=== PATIENT | male | born 1965 | race Caucasian/White ===

== ENCOUNTER 2021-09-14 08:00 | Outpatient (RCR) | payer OTHER, SELFPAY ==
--- NOTE | 2021-08-10 09:13 | PTOPEVAL ---
Thank you for referring Raghavendra Stoddard to [facility] The patient is scheduled to be seen for therapy? 1 x/week for 5 weeks. Please review, sign, date and return this plan of care JAMIL. I agree with and certify that the following plan of care is medically necessary. Referring Physician Date Attending Provider: Tori Ventimiglia Diagnosis numbness and tingling into cristo UE Onset 1 month ago Additional Evaluation Detail He has been working a new job 4 months ago with increased lifting. Subjective Information He reports increased arm Query Text:As Reported By Patient/ soreness after work and Family increased lifting. But he reports increased numbness of left UE with difficulty with grasp. Increased symptoms in the morning and into full UE/hand region. States left > right for symptoms. He will have increased hand symptoms with use of phone or computer, but improve with rest. Reports he fatigues faster with daily task. He was working IT prior to current job, but did not have the UE symptoms. Diagnostic Tests X-Rays For This Problem Yes: mild/mod degenerative changes of neck region Pain Assessment Right Arm(s) Reported Pain Level 1 Pain Description Numbness,Radiating,Soreness, Tingling Pain Radiation Right Arm Lowest Pain Intensity 1 Greatest Pain Intensity 7 Pain Aggravating Factors Exercise/Activity Left Arm(s) Reported Pain Level 3 Pain Description Numbness,Radiating,Tingling Pain Radiation Left Arm Pain Frequency Continuous Lowest Pain Intensity 3 Greatest Pain Intensity 10 Pain Aggravating Factors Exercise/Activity,Lifting Cervical and Lumbar ROM Cervical ROM Cervical Flexion (0-60) 70:Active in Degrees Cervical Extension (0-70) 60:Active in Degrees Cervical Lateral Flexion Right (0-50) 30:Active in Degrees Cervical Lateral Flexion Left (0-50) 35Active in Degrees Cervical Rotation Right (0-90) 68:Active in Degrees Cervical ROM Comments no pain with neck motions Upper Extremity Range of Motion General Upper Extremity Range of Motion Reason Not Measured
--- NOTE | 2021-09-14 08:51 | PTOPEVAL ---
Physical Therapy Discharge Summary Thank you for referring Raghavendra Stoddard to [facility]. HE was referred to therapy due to new onset of numbness and tingling of UE. He has attended 6 therapy visits from 08/10/21 to 09/14/21. As result of skilled therapy services he reports improve cristo UE symptoms at rest and with UE activities. He demonstrates slight increased cervical lateral flex without increased symptoms. Improved scapular stability strength noted,but remains below normal consistent with poor posture and scapular positions. No tissue restrictions of neck region. Neck questionnaire: 8% impaired at eval and 6% impaired at update Quick Dash: 16% impaired at eval and 11% impaired at update Assessment: As a result of skilled therapy services Raghavendra has partially achieved his therapy goals. He demonstrates improved UE symptoms and improved strength. His neck motion is pain free and WNL. He has been provided a HEP,but is not consistent with performing. Recommend DC from skilled therapy services at this time with recommendation to cont with HEP and focus on posture with activities. DC skilled PT services. Please review, sign, date and return this discharge summary JAMIL. I agree with and certify that the following plan of care is medically necessary. Referring Physician Date Attending Provider: Tori Ventimiglia Diagnosis numbness and tingling into cristo UE Onset 1 month ago Additional Evaluation Detail He has been working a new job 4 months ago with increased lifting. Subjective Information He recently retired and hopes Query Text:As Reported By Patient/ to have more time for his HEP. Family HE is peforming HEP 2-3x/wk. He reports improved UE symptoms with lifting. He has less arm pain in the morning. Reports improved numbness and tingling into his UE. He will have increased hand symptoms greatest in the morning, but also with lifting task. Symptoms into arms go to elbow region. He will wear an elbow brace as need which improves his pain. Pain Assessment Right Arm(s) Reported Pain Level 0 Pain Description Tightness Pain Frequency Continuous Lowest Pain Intensity 0 Greatest Pain Intensity 2 Pain Aggravating Factors Exercise/Activity,Lifting Left Arm(s) Reported Pain Level 1 Pain Description Numbness,Radiating,Tightness, Tingling Lowest Pain Intensity 1 Greatest Pain Intensity 5 Pain Aggravating Factors Exercise/Activity,Lifting Cervical and Lumbar ROM Cervical ROM Cervical Flexion (0-60) 65 Degrees
== END 2021-09-15 10:40 | disposition home or self-care (01) ==
LOC: ANHPT 08:00
DX: R20.0 Anesthesia of skin (principal); R20.2 Paresthesia of skin
CPT/HCPCS: 97110; 97112; 97140; 97161; 97530

== ENCOUNTER 2024-08-18 14:38 | Emergency (ER) | payer SELFPAY ==
--- NOTE | ~2024-08-18 | XR_ITS ---
XR hand RT min 3V Ordering provider: Maxwell Lou MD History: . hand vs table saw . Comparison: None. FINDINGS: BONES: Oblique midshaft fracture of the proximal phalanx of the second finger with minimal displaceme nt.. Overlapping cast is noted. JOINT SPACES: Normal. SOFT TISSUES: Normal. IMPRESSION: Oblique fracture in the proximal phalanx of the right second finger. Reviewed, dictated and finalized at location A.
--- OUTSIDE RECORDS SUMMARY | 2024-08-18 14:42 | XMS_ITS | Clinical Summary ---
Author Organization CC [facility] 1 [address] Address [address] [place] [address] Phone Care Team Providers Care Presentation Team Member Name Role Phone Kellie Bruno MD Primary Care Provider [phone] Olman Groves OD Unavailable [phone] Kahlil Orr MD Unavailable [phone] Puma Jon MD Unavailable [phone] Sekou Schaefer MD Unavailable Leonardo Henry MD Unavailable Arthur Zavala DPM Unavailable [phone] Allergies No known active allergies Medications FLUoxetine (PROzac) 20 mg capsule daily 09/30/19 17 Active multivit with min-folic acid 200 mcg tablet,chewableInd ications:stop 5 days before surgery Take by mouth Take 1 daily Active aspirin 81 mg chewable tabletIndications: Angina pectoris Take 1 tablet (81 mg total) by mouth daily 30 tablet 1 07/15/19 22 Active rosuvastatin (CRESTOR) 20 mg tabletIndications: Multiple-type hyperlipidemia Take 1 tablet by mouth once daily 90 tablet 1 07/25/19 25 Active rosuvastatin (CRESTOR) 20 mg tabletIndications: Multiple-type hyperlipidemia Take 1 tablet (20 mg total) by mouth daily 90 tablet 3 02/08/20 23 025 Discontinued Active Problems Problem Noted Date Diagnosed Date Right inguinal hernia 02/07/2023 Overview (02/07/2023): Previous left inguinal hernia successfully treated with surgery. Early right inguinal hernia noted February 2023 PETEY (obstructive sleep apnea) 08/26/2021 Family history of heart disease 08/26/2021 Bipolar I disorder, most recent episode depresse d 09/22/2013 Overview (08/11/2016): Bipolar depression Multiple-type hyperlipidemia 09/22/2013 Overview (08/12/2016): Combined hyperlipidemia Resolved Problems Problem Noted Date Diagnosed Date Resolved Date Dizziness 08/26/2021 02/01/2022 Numbness and tingling of right arm 07/27/2021 02/01/2022 Numbness and tingling in left arm 07/27/2021 02/01/2022 Hypersomnia 07/27/2021 02/07/2023 Laceration of left eyelid wi thout complication 02/02/2021 07/14/2021 Assessment & Plan (02/02/2021 9:19 AM CDT): Patient presents today for suture removal. Laceration is healed well, wound edges are well approximated and no obvious sign of infection. Area cleaned and 5 sutures removed. Patient tolerated well. Patient encouraged to keep area clean with gentle soap and water. He is to call with any redness, warmth, swelling, pain or discharge. Patient will return as scheduled or sooner if needed. Left inguinal hernia 06/27/2018 023 Overview (06/27/2018): Added automatically from request for surgery [id number] Assessment & Plan (06/27/2018 3:09 PM PASSPORT APPLICATION EXAMINER): The procedure of a hernia repair along with the risks and benefits and post operative period were discussed with the patient to which he agrees. The signs and symptoms of incarceration and obstruction were also discussed. The patient was also offered an appointment with the surgeon prior to scheduling surgery of which he declined. Chronic GERD 09/22/2013 06/10/2017 Overview (08/14/2016): GERD (gastroesophageal reflux disease) Vitamin D deficiency 09/22/2013 023 Overview (08/14/2016): Vitamin D deficiency Immunizations Immunization Administration Dates Next Due Flucelvax Influenza Quad 02/04/2019 Influenza, Quadrivalent, Ramona l Culture-based MDCK, Preservative Free, Antibiotic Free, Intramuscular 01/27/2022,02/07/2021,02/04/2019 Influenza, Quadrivalent, Spl it, Intramuscular 02/07/2016 Influenza, Quadrivalent, Spl it, Preservative Free, Intramuscular 01/15/2020,01/21/2018,01/20/2018,02/12 Influenza, Trivalent, IM (MDV) 5,01/27/2014,02/15/2013,04/15 Influenza, Trivalent, Preser vative Free, Intramuscular 02/13/2016,02/01/2015 Influenza, Unspecified 01/07/2017 Moderna Sars-cov-2 Bivalent Vaccine 50 Mcg/0.5 mL (12+ YRS)-Blue/Purdy 01/27/2022 Tdap 01/26/2021,06/08/2012 ZOSTER Recombinant 04/25/2018,02/24/2018 Surgical History Surgery Date Site/Laterality Comments COLONOSCOPY 05/09/2014 - 05/08/2015 (-) Dr. Jon due in 10 years HERNIA REPAIR 07/27/2018 Left Endoscopic Total ExtraPeriatoneal Left Inguinal Hernia Repair with Mesh Medical History Medical History Date Comments Eczema Bipolar 1 disorder (HCC) Hyperlipidemia GERD (gastroesophageal reflux disease) Diverticulosis Chronic GERD 09/22/2013 GERD (gastroesop hageal reflux disease) Depression 2019 Inguinal hernia PETEY (obstructive sleep apnea) 08/26/2021 Vitamin D deficiency 09/22/2013 Vitamin D d eficiency Hypersomnia 07/27/2021 Family History Medical History Relation Name Comments Heart attack Brother Heart disease Brother Heart disease Father Colon cancer Maternal Grandfather Cancer Mother's Brother Prostate cancer Mother's Brother Coronary artery disease Other 1 Coronary artery disease Other 2 Diabetes Other 3 Heart attack Other 4 Heart disease Paternal Grandmother Relation Name Status Comments Brother Alive Father Alive Maternal Grandfather Mother's Brother Alive Other 1 Other 2 Other 3 Other 4 Paternal Grandmother Social History Tobacco Use Types Packs/Day Years Used Date Smoking Tobacco: Never Smokeless Tobacco: Never Tobacco Cessation:Counseling Given: Not Answered Alcohol Use Standard Drinks/Week Comments Yes 2 (1 standard drink = 0.6 oz pur e alcohol) PHQ-2 Answer Date Recorded PHQ-2 Total Score (If total score is 3 or more points, staff should administer the PHQ-9) 0 02/09/2024 Sex and Gender Information Value Date Recorded Sex Assigned at Not on file Legal Sex Male 7:18 PM PASSPORT APPLICATION EXAMINER Gender Identity Not on file Sexual Orientation Not on file Obstetrics History Last Filed Vital Signs Vital Sign Reading Time Taken Comments Blood Pressure 117/73 02/16/2024 8:08 AM CDT Pulse 86 02/16/2024 8:08 AM CDT Temperature 36.5 C (97.7 F) 02/09/2024 10:44 AM CDT Respiratory Rate 16 02/09/2024 10:44 AM CDT Oxygen Saturation 95% 02/16/2024 8:08 AM CDT Inhaled Oxygen Concentration - - Weight 85.3 kg (188 lb) 02/16/2024 8:08 AM CDT Height 176.5 cm (5' 9.5 ) 02/16/2024 8:08 AM CDT Body Mass Index 27.36 02/16/2024 8:08 AM CDT Plan of Treatment Health Maintenance Due Date Last Done Comments Hepatitis B Screening 1981 Colon Cancer Screening-Colonoscopy 10/28/2024 10/28/2014, 10/28/2014 Influenza Vaccine (Season Ended) 2025 01/27/2022, 02/07/2021, 01/15/2020, Additional history exists Depression Screening 02/08/2025 02/09/2024, 02/07/2023, 02/01/2022, Additional history exists Regular Well Visit/Exam 18-64 02/08/2025 02/09/2024, 02/07/2023, 02/01/2022, Additional history exists Prostate Cancer Screening-PSA 02/08/2026 02/09/2024, 01/28/2023, 02/01/2022, Additional history exists DTaP/Tdap/Td Vaccine (3 - Td or Tdap) 01/26/2031 01/26/2021, 06/08/2012 Colon Cancer Screening-CT Colonography Discontinued 10/28/2014, 10/28/2014 Colon Cancer Screening-DNA Stool Discontinued 10/28/2014, 10/28/2014 Colon Cancer Screening-FIT Discontinued 10/28/2014, Colon Cancer Screening-Sigmoidoscopy Discontinued 10/28/2014, 10/28/2014 Hepatitis C Screening Completed 10/28/2015 Zoster Vaccine Completed 04/25/2018, 02/24/2018 Covid-19 Vaccine Completed 01/24/2024, 07/2022, 01/27/2022, Additional history exists Pneumococcal vaccine <65 Aged Out No longer eligible based on patient's age to complete this topic Medical Devices Implanted Type Area Collections Attorney Device Identifier Shelf Expiration Date Model / Serial / Lot Med[employer]onic Inc [id number] Progrip 15x9cm Self Manager Life Rectangle Mesh Surgical Polyester Hernia - [id number] Implanted:Qty: 1 on 07/27/2018 by Dmitry Pelaez MD at [facility] [employer] 02/05/2023 [id number] / / [id number] Procedures Procedure Name Priority Date/Time Associated Diagnosis Comments PSA SCREEN Routine 02/09/2024 12:08 PM CDT Prostate cancer screening HEPATITIS C ANTIBODY Routine 10/28/2015 9:08 AM CDT COLONOSCOPY IMAGES 10/28/2014 from Last 3 Months or Most Recently Relevant to Health Maintenance Results * PSA screen (02/09/2024 12:08 PM CDT) PSA-Total 1.73 <=5.40 ng/mL Comment: Interpretive Data AGE SEX REFERENCE INTERVAL 0 minutes-150 years Female None 0 minutes-49 years Male None 50-59 years Male 0-3.90 60-69 years Male 0-5.40 70-79 years Male 0-6.20 80-150 years Male 0-6.20 The Crystal PSA Total assay procedure was used. Results from different manufacturers or methods may not be comparable. Serial testing should be performed using the same method. Current interpretive data last revised 21. Testing performed by: [facility], [address] [place] [address]., [address] Blood 02/09/2024 12:0 8 PM CDT 02/09/2024 5:15 PM CDT Kellie Bruno MD LAB BLOOD ORDERABLES Final Result Performing Organization Address [facility] Co de Phone Number [facility] [address] [facility] Department of Laboratories [place] [id number] * Hepatitis C antibody (10/28/2015 9:08 AM CDT) SIGNAL TO CUT-OFF 0.01 <1.00 [facility] Comment: REPORT COMMENT: FASTING:YES [facility] [address] [place] [address] Director: JUDITH ALCARAZ DO,MPH Hep C Ab NON-REACT FABI NON-REACT FABI [facility]OR[facility] RESULTS 10/28/2015 9:08 AM CDT Kellie Bruno MD LAB MICROBIOLOGY - GENERAL ORDERABLES Final Result Performing Organization Address [facility] Co de Phone Number [facility] * COLONOSCOPY IMAGES (10/28/2014) Anatomical Region Laterality Modality Other Narrative 10/28/2014 Ordered by an unspecified provider. Historical Provider GI PROCEDURE ORDERABLES F inal Result from Last 3 Months or Most Recently Relevant to Health Maintenance Insurance [employer] [place] Advance Directives For more information, please contact: [phone] Documents on File Type Date Recorded Patient Bike Shop Manager Expl anation ADVANCE DIRECTIVE 02/09/2024 ADVANCE DIRECTIVE 12/26/2019 POWER OF A [employer] Care Teams Presentation Team Member Relationship Specialty Start Date End Date Kellie Bruno MD PCP - General 05/26/12 Olman Groves OD [address] [place] [address] Virtual Office Assistant 12/07/16 Kahlil Orr MD [address] [facility] [address] [place] [address] Psychiatry 12/07/16 uPma Jon MD [address] [place] [facility] [place] [address] Internal Medicine 12/07/16 Sekou Schaefer MD [address] [facility] [address] [place] [address] Consulting Physician Cardiology 07/14/21 Leonardo Henry MD [address] [facility] [address] [place] [address] Consulting Physician Neurology 02/01/22 Arthur Zavala DPM [address] [place] [address] Consulting Physician Orthotics 02/07/23
--- OUTSIDE RECORDS SUMMARY | 2024-08-18 14:42 | XMS_ITS | Clinical Summary ---
Author Organization [facility] Address [address] [place] [address] Care Team Providers Care Bindery Helper Name Role Phone Kellie Bruno MD Primary Care Provider [phone] Allergies No known active allergies Medications atorvastatin 20 MG tablet Take 20 mg by mouth nightly at bedtime. Active FLUoxetine 10 MG capsule Take 10 mg by mouth daily. Active Family History Medical History Relation Comments Heart Disease Father Relation Status Comments Father Social History Tobacco Use Types Packs/Day Years Used Date Smoking Tobacco: Never Smokeless Tobacco: Never Alcohol Use Standard Drinks/Week Comments Never 0 (1 standard drink = 0.6 oz pur e alcohol) Sex and Gender Information Value Date Recorded Sex Assigned at Not on file Legal Sex Male 7:10 PM CDT Gender Identity Not on file Sexual Orientation Not on file Last Filed Vital Signs Vital Sign Reading Time Taken Comments Blood Pressure 127/66 07/10/2021 10:15 PM SEM MANAGER Pulse 86 07/10/2021 6:59 PM SEM MANAGER Temperature 36.5 C (97.7 F) 07/10/2021 6:59 PM SEM MANAGER Respiratory Rate 16 07/10/2021 6:59 PM SEM MANAGER Oxygen Saturation 98% 07/10/2021 10:15 PM SEM MANAGER Inhaled Oxygen Concentration - - Weight 72.6 kg (160 lb) 07/10/2021 6:59 PM SEM MANAGER Height 175.3 cm (5' 9 ) 07/10/2021 6:59 PM SEM MANAGER Body Mass Index 23.63 07/10/2021 6:59 PM SEM MANAGER Plan of Treatment Health Maintenance Due Date Last Done Comments Colorectal Cancer Screening Colonoscopy (10 Years) 1963 Annual Physical 1966 Hepatitis C 1981 COVID-19 Vaccine (2 - 2023-2 5 season) 2024 07/13/2020 DTaP, Tdap and Td Vaccines ( 3 - Td or Tdap) 01/26/2031 01/26/2021, 06/08/2012 RSV Immunization or 60+ Years (1 - 1-dose 75+ series) 2038 Zoster Vaccines Completed 04/25/2018, 02/24/2018 Meningococcal B Vaccine Aged Out No l onger eligible based on patient's age to complete this topic Meningococcal Vaccine Aged Out No marcia claire eligible based on patient's age to complete this topic Pneumococcal Vaccine: Pediatrics (0 to 5 Years) and At-Risk Patients (6 to 64 Years) Aged Out No longer eligible b ased on patient's age to complete this topic RSV Immunizations Under 20 Months Aged Out No longer eligible b ased on patient's age to complete this topic Insurance AET [facility] Care Teams Bindery Helper Relationship Specialty Start Date End Date Kellie Bruno MD [address] [place] [address] PCP - General INTERNAL MEDICINE 01/25/21
--- OUTSIDE RECORDS SUMMARY | 2024-08-18 14:42 | XMS_ITS | Encounter Summary ---
Author Organization [facility] Address [facility] [place] [address] Care Team Providers Care Manager Trade Marketing Name Role Phone Kellie Bruno MD Primary Care Provider [phone] Encounter Details Date Type Department Care Team (Late st Contact Info) Description 09/23/2021 [employer] [place] Message [facility] Patient Accounts [address] [place] [address] [facility] Provider AutoPay Payment Plan Social History Tobacco Use Types Packs/Day Years Used Date Smoking Tobacco: Never Smokeless Tobacco: Never Alcohol Use Standard Drinks/Week Comments Never 0 (1 standard drink = 0.6 oz pur e alcohol) Sex and Gender Information Value Date Recorded Sex Assigned at Not on file Legal Sex Male 7:10 PM CDT Gender Identity Not on file Sexual Orientation Not on file documented as of this encounter Plan of Treatment Not on file documented as of this encounter Visit Diagnoses Not on filedocumented in this encounter Care Teams Manager Trade Marketing Relationship Specialty Start Date End Date Kellie Bruno MD [address] [place] [address] PCP - General INTERNAL MEDICINE 01/25/21 documented as of this encounter
--- OUTSIDE RECORDS SUMMARY | 2024-08-18 14:42 | XMS_ITS | Referral Summary ---
Author Organization [facility] 1 [employer] Address [address] [place] [address] Phone Care Team Providers Care Senior Mechanical Estimator Name Role Phone Kellie Bruno MD Primary Care Provider [phone] Olman Groves OD Unavailable [phone] Kahlil Orr MD Unavailable [phone] Puma Jon MD Unavailable [phone] Sekou Schaefer MD Unavailable Leonardo Henry MD Unavailable Arthur Zavala DPM Unavailable [phone] Allergies No known active allergies Medications FLUoxetine [...] Early right inguinal hernia noted February 2023 PETYE (obstructive sleep apnea) 08/26/2021 Family history of [...] (06/27/2018): Added automatically from request for surgery [id number] Assessment & Plan (06/27/2018 3:09 PM SHOT HOLE SHOOTER): The procedure of a hernia repair along [...] YRS)-Blue/Purdy 01/27/2022 Tdap 01/26/2021,06/08/2012 ZOSTER Recombinant 04/25/2018,02/24/2018 Social History Tobacco Use Types Packs/Day Years [...] on file Legal Sex Male 7:18 PM SHOT HOLE SHOOTER Gender Identity Not on file Sexual Orientation [...] 02/16/2024 8:08 AM CDT Plan of Treatment Not on file Medical Devices Implanted Type Area Shot Grinder Operator Device Identifier Shelf Expiration Date Model / Serial / Lot [employer] [id number] Progrip 15x9cm Self Ball Point Splitter Rectangle Mesh Surgical Polyester Hernia - [id number] Implanted:Qty: 1 on 07/27/2018 by Dmitry Pelaez MD at [facility] [employer] 02/05/2023 [id number] / / [id number] Procedures Procedure Name Priority Date/Time Associated Diagnosis [...] data last revised 21. Testing performed by: [facility], [address] [place] [address], [place]., [address] Blood 02/09/2024 12:0 8 PM CDT 02/09/2024 5:15 PM CDT Kellie Bruno MD LAB BLOOD ORDERABLES Final Result [facility] [place] [address] [address] Department [place] [address] * Hepatitis C antibody (10/28/2015 9:08 AM CDT) SIGNAL TO CUT-OFF 0.01 <1.00 [facility] Comment: REPORT COMMENT: FASTING:YES [facility] performed at [facility] [address] [place] [address] Director: JUDITH ALCARAZ DO,MPH Hep C Ab NON-REACT FABI NON-REACT FABI [facility]OR[facility] RESULTS 10/28/2015 9:08 AM CDT Kellie Bruno MD LAB MICROBIOLOGY - GENERAL ORDERABLES Final Result Performing Organization Address City/[facility] [address]/ZIP Co de Phone Number [facility] * COLONOSCOPY IMAGES (10/28/2014) Anatomical Region Laterality Modality Other Narrative 10/28/2014 Ordered by an unspecified provider. Historical Provider GI PROCEDURE ORDERABLES F inal Result from Last 3 Months or Most Recently Relevant to Health Maintenance Insurance [facility] PPO [place] Advance Directives For more information, please contact: [phone] Documents on File Type Date Recorded Patient Fire Adjuster Expl anation ADVANCE DIRECTIVE 02/09/2024 ADVANCE DIRECTIVE 12/26/2019 POWER OF A [employer]NEY[employer] Care Teams Senior Mechanical Estimator Relationship Specialty Start Date End Date Kellie Bruno MD PCP - General 05/26/12 Olman Groves OD [address] [place] [address] Economics Professor 12/07/16 Kahlil Orr MD [address] [facility] [address] [place] [address] Psychiatry 12/07/16 Puma Jon MD [address] [place] [address] [address] [place] [address] Internal Medicine 12/07/16 Sekou Schaefer MD [address] [facility] [facility] [address] [place] [address] Consulting Physician Cardiology 07/14/21 Leonardo Henry MD [address] [facility] [facility] [address] [place] [address] Consulting Physician Neurology 02/01/22 Arthur Zavala DPM [address] [place] [address] Consulting Physician Orthotics 02/07/23
[2024-08-18 14:43] VITALS: BP 122/69; PULSE 90; RESP 18; TEMP 36.7; O2SAT 99
--- NOTE | 2024-08-18 14:54 | ED.GENADULT ---
HPI - General Adult General Chief complaint: Wound/Laceration Stated complaint: R HAND VS TABLE SAW Time Seen by Provider: 08/18/24 14:44 Related Data Allergies Allergy/AdvReac Type Severity Reaction Status Date / Time No Known Allergies Allergy Verified 08/18/24 14:39 Exam Narrative: APPEARANCE: No apparent distress. Head: atraumatic. EYES: EOMI, NOSE: Atraumatic NECK: Trachea midline RESPIRATORY: No increased rate of breathing CARDIOVASCULAR: RRR, ABDOMINAL: Non-distended MUSCULOSKELETAl: Focal exam of the right hand showed a large diagonal laceration extending from the PIP of the 2nd digit across the dorsum hand. The articular surface of the PIP of the index finger is visible on exam. The extensor mechanism of the 3rd digit has been severed. Cap refill is intact. Bleeding is controlled. NEURO: Alert. Moving 4/4 extremities SKIN:: Warm, dry. Normal color PSYCHIATRIC: Normal affect Course Vital Signs Vital signs: Vital Signs Temperature 98.1 F 08/18/24 14:43 Pulse Rate 90 08/18/24 14:43 Respiratory Rate 18 08/18/24 14:43 Blood Pressure 122/69 08/18/24 14:43 Pulse Oximetry 99 08/18/24 14:43 Oxygen Delivery Room Air 08/18/24 14:43 Temperature 98.1 F 08/18/24 14:43 Pulse Rate 90 08/18/24 14:43 Respiratory Rate 18 08/18/24 14:43 Blood Pressure 122/69 08/18/24 14:43 Pulse Oximetry 99 08/18/24 14:43 Oxygen Delivery Room Air 08/18/24 14:43 Medical Decision Making [facility] Narrative Medical decision making narrative: -Course: 59-year-old male presenting with significant hand injury via table saw incident. PIP joint of the 2nd finger is is open. Extensor mechanism of the 3rd digit is severed. Patient will require Hand surgery. He will then transferred to [facility]. Case discussed with Dr. Epperson (hand) and Dr. Laird (ED) Vital Signs Vital Signs: Vital Signs Temperature 98.1 F 08/18/24 14:43 Pulse Rate 90 08/18/24 14:43 Respiratory Rate 18 08/18/24 14:43 Blood Pressure 122/69 08/18/24 14:43 Pulse Oximetry 99 08/18/24 14:43 Oxygen Delivery Room Air 08/18/24 14:43 Temperature 98.1 F 08/18/24 14:43 Pulse Rate 90 08/18/24 14:43 Respiratory Rate 18 08/18/24 14:43 Blood Pressure 122/69 08/18/24 14:43 Pulse Oximetry 99 08/18/24 14:43 Oxygen Delivery Room Air 08/18/24 14:43 Discharge Plan Discharge Clinical Impression: Laceration Patient Disposition: Still a Patient Condition: Stable Patient Language: [place] Irish Follow-up/Referrals: Kiana,MD Kellie [Primary Care Provider] -
[2024-08-18] MEDS: cefTRIAXone 2 GM/NS 100 ML 2 GM/100 ML BAG IVPB (15:00)
[2024-08-18] MEDS: TETANUS,DIPHTHERIA,AC PERTUSSIS ADULT (0.5 ML) BOOSTRIX IM (15:00)
[2024-08-18] MEDS: HYDROmorphone HCL INJ (*CRX) 1 MG/ML SYR IV PUSH (15:00)
[2024-08-18] MEDS: ONDANSETRON INJ 4 MG/2 ML VIAL (15:16)
--- OUTSIDE RECORDS SUMMARY | 2024-08-18 15:18 | XMS_ITS | Encounter Summary ---
Author Organization [facility] Address Replaced by [facility] [place] [address] Care Team Providers Care Child Development Director Name Role Phone Kellie Bruno MD Primary Care Provider [phone] Encounter Details Date Type Department Care Team (Late st Contact Info) Description 09/23/2021 [place] Message [facility] Patient Accounts [address] [place] [address] [facility] Provider AutoPay Payment Plan Social [...] on filedocumented in this encounter Care Teams Child Development Director Relationship Specialty Start Date End Date Kellie Bruno MD [address] [place] [address] PCP - General INTERNAL MEDICINE 01/25/21 documented as of this encounter
--- OUTSIDE RECORDS SUMMARY | 2024-08-18 15:18 | XMS_ITS | Clinical Summary ---
Author Organization [facility] Address [address] [place] [address] Care Team Providers Care [employer] Media Specialist Name Role Phone Kellie Bruno MD Primary Care Provider [phone] Allergies No known active allergies Medications atorvastatin [...] Comments Blood Pressure 127/66 07/10/2021 10:15 PM PICK PULLING MACHINE OPERATOR Pulse 86 07/10/2021 6:59 PM PICK PULLING MACHINE OPERATOR Temperature 36.5 C (97.7 F) 07/10/2021 6:59 PM PICK PULLING MACHINE OPERATOR Respiratory Rate 16 07/10/2021 6:59 PM PICK PULLING MACHINE OPERATOR Oxygen Saturation 98% 07/10/2021 10:15 PM PICK PULLING MACHINE OPERATOR Inhaled Oxygen Concentration - - Weight 72.6 kg (160 lb) 07/10/2021 6:59 PM PICK PULLING MACHINE OPERATOR Height 175.3 cm (5' 9 ) 07/10/2021 6:59 PM PICK PULLING MACHINE OPERATOR Body Mass Index 23.63 07/10/2021 6:59 PM PICK PULLING MACHINE OPERATOR Plan of Treatment Health Maintenance Due Date [...] age to complete this topic Insurance AET [facility] Care Teams [employer] Library Media Specialist Relationship Specialty Start Date End Date Kellie Bruno MD [address] [place] [address] PCP - General INTERNAL MEDICINE 01/25/21
== END 2024-08-18 16:29 | disposition short-term general hospital (02) ==
LOC: ANHED 15:15
PROVIDERS: Emergency Provider Emergency Medicine; PCP Internal Medicine Geriatric Medicine
DX: S66.322A Laceration of extensor muscle, fascia and tendon of right middle finger at wrist and hand level, initial encounter (principal); Z23 Encounter for immunization; W31.2XXA Contact with powered woodworking and forming machines, initial encounter
CPT/HCPCS: 73130; 90471; 90715; 96365; 96375; 99285; J0696; J1171; J2405

== ENCOUNTER 2024-12-06 08:00 | Outpatient (RCR) | payer BC, MEDICAID, SELFPAY ==
--- NOTE | 2024-09-10 14:58 | OTOPEVAL1 ---
Assessment and note entered by LEE Pastor/Colten, CHT Evaluation Information Assessment Status Evaluation Diagnosis Displaced fracture of proximal phalanx of right index finger Subjective Information Patient is s/p table saw injury to the dorsum of the right hand. Diagnoses and surgical procedures include -index finger: open proximal phalanx fracture and ED laceration, zone III and IV. S/p ORIF and percutaneous pinning with ED repair. The MP is pinned and order says no movement here. - middle finger: metacarpal head fx and ED laceration zone V. S/p MCP joint capsule repair and ED repair. - ring finger: ED laceration zone V. s/p ED repair He presents in a volar forearm based wrist, hand, and index finger orthosis. He only removes the orthosis for hygiene. Has not had any ROM instruction. Reported Pain Level Pain Score 0: Self Report Assessment OT Clinical Summary Patient referred to hand therapy following a table saw injury to the dorsum of his right, dominant hand. He is s/p pinning of the proximal phalanx of the index finger and ED repair in zones III/IV for the index finger and zone V for the middle and ring fingers. He presents in a custom fabricated orthosis supporting all of the affected structures well. He is independent with don/doffing the orthosis and verbalizes good understanding of pin care. The incision/repair site and pin sites have no signs of infection. Scabs present and no drainage. He was educated on precautions and expectations following tendon repair. Active ROM of the index DIP, active ROM of the middle, ring, and small finger PIP/DIP was issued today. Instructed on regular compliance with gentle ROM and continued use of ice and elevation for edema control. He demonstrates excellent understanding of all materials. Continued follow up indicated to progress ROM through tendon repair protocol, use of modalities PRN, and continued scar mobilization as pins are removed to facilitate optimal functional ROM, flexibility, and use of his right, dominant hand. Plan of Care Interventions Therapeutic Exercise,Manual Therapy,Therapeutic Activities,Hot Pack/Cold Pack,Check Out for Orthotic/Prosthetic,Ultrasound,Paraffin OT Services Indicated Yes Treatment Frequency and 1x/week for 6 visits Duration These treatments will address the objective and functional deficits as defined above. The patient will be advanced safely and appropriately in order for the patient to progress towards his/her prior level of function. Additional exercises will be introduced and as well as a comprehensive home exercise program upon discharge, if needed, ?to ensure carryover of functional gains achieved in the clinic. This treatment plan has been reviewed and agreement upon by the patient.
--- NOTE | 2024-09-10 14:58 | OPREHPOC ---
Outpatient Therapy Plan of Care This is a Multidisciplinary Plan of Care that may contain components documented by all disciplines (PT, OT, and ST.) OT Problem 1 OT Problem #1 Knowledge Deficit OT Goal 1 Goal / Goal Update Patient to be independent with instructed materials. Target Visit 6 OT Problem 2 OT Problem #2 Impaired Range of Motion OT Goal 1 Goal / Goal Update 1. By 6 weeks post op (09/28/24): - patient to be able to make a fist as measured by finger tips being able to touch his palm 2. By 4 weeks post up (09/21/24): - pt to begin short arc wrist motion with fingers extended - pt to begin short arc MCP motion with wrist in neutral Target Visit 6
--- NOTE | 2024-10-18 12:12 | OTOPPROG ---
Assessment and note entered by Rick Olivia, LEE/Colten, CHT OT Progress Update 10/18/24 Assessment Status Progress Diagnosis Displaced fracture of proximal phalanx of right index finger Subjective Information HPI: Patient is s/p table saw injury to the dorsum of the right hand. Diagnoses and surgical procedures include -index finger: open proximal phalanx fracture and ED laceration, zone III and IV. S/p ORIF and percutaneous pinning with ED repair. The MP is pinned and order says no movement here. - middle finger: metacarpal head fx and ED laceration zone V. S/p MCP joint capsule repair and ED repair. - ring finger: ED laceration zone V. s/p ED repair 10/18/24: Patient is 9 weeks post op. He reports slow, steady progress with functional ROM. He reports he can now oppose his thumb to all his digits and is working toward a functional fist. He continues to have limited index finger flexion, particularly at the PIP joint which limits a gross fist for ADLs. He reports he feels stiff and weak , but is able to see good progress. ROM - tip to palm gaps: - index finger 6 cm - middle finger 1 cm - ring and small fingers 0 cm Index finger: MCP 50 deg flexion PIP 45 deg flexion DIP 35 deg flexion Middle finger: MCP 55 deg flexion PIP 90 deg flexion DIP 65 deg flexion Assessment OT Clinical Summary Patient referred to hand therapy following a table saw injury to the dorsum of his right, dominant hand. He is s/p pinning of the proximal phalanx of the index finger and ED repair in zones III/IV for the index finger and zone V for the middle and ring fingers. He is progressing with functional flexibility/ROM as well as functional use of his right, dominant hand. The index finger demonstrates slower progress, however we are progressing active and gentle passive ROM slower than the others due to bone loss in P1/PIP of the index finger. He is able to mobilize the PIP to 45 degrees actively. The middle finger PIP/DIP joints are WFL, the limitation is stiffness at the MCP joint. The scar site is well healed and he is performing scar mobilization. Edema control with a compression glove. He has weaned out of the splint for light activities. Continued follow up indicated to progress ROM, use of modalities PRN, and continued scar mobilization as pins are removed to facilitate optimal functional ROM, flexibility, and use of his right, dominant hand. Plan of Care Interventions Therapeutic Exercise,Manual Therapy,Therapeutic Activities,Hot Pack/Cold Pack,Check Out for Orthotic/Prosthetic,Ultrasound,Paraffin OT Services Indicated Yes Treatment Frequency and 1x/week for 6 visits Duration These treatments will address the objective and functional deficits as defined above. The patient will be advanced safely and appropriately in order for the patient to progress towards his/her prior level of function. Additional exercises will be introduced and as well as a comprehensive home exercise program upon discharge, if needed, ?to ensure carryover of functional gains achieved in the clinic. This treatment plan has been reviewed and agreement upon by the patient.
--- NOTE | 2024-10-18 12:13 | OPREHPOC ---
Outpatient Therapy Plan of Care This is a Multidisciplinary Plan of Care that may contain components documented by all disciplines (PT, OT, and ST.) OT Problem 1 OT Problem #1 Knowledge Deficit OT Goal 1 Goal / Goal Update Patient to be independent with instructed materials. ---OT POC UPDATE 10/18/24--- Met, continue as HEP is progressed Target Visit 12 OT Problem 2 OT Problem #2 Impaired Range of Motion OT Goal 1 Goal / Goal Update 1. By 6 weeks post op (09/28/24): - patient to be able to make a fist as measured by finger tips being able to touch his palm 2. By 4 weeks post up (09/21/24): - pt to begin short arc wrist motion with fingers extended - pt to begin short arc MCP motion with wrist in neutral ---OT POC UPDATE 10/18/24--- 1. Progressing, but not met, continue 2. Met, D/C goal Target Visit 12
--- NOTE | 2024-11-26 08:46 | OTOPPROG ---
Assessment and note entered by Rick Olivia, LEE/Colten, YOANDYT OT Progress Update 11/26/24 Assessment Status Progress Diagnosis Displaced fracture of proximal phalanx of right index finger Subjective Information HPI: Patient is s/p table saw injury to the dorsum of the right hand. Diagnoses and surgical procedures include -index finger: open proximal phalanx fracture and ED laceration, zone III and IV. S/p ORIF and percutaneous pinning with ED repair. The MP is pinned and order says no movement here. - middle finger: metacarpal head fx and ED laceration zone V. S/p MCP joint capsule repair and ED repair. - ring finger: ED laceration zone V. s/p ED repair Patient is 14 weeks post op. He reports progress, but that he notes he is learning to compensate during functional tasks. He reports he is making progress toward being able to make a fist with the middle, ring, and small fingers, however the index finger continues to be stiff and has limited functional flexion for gripping. He typically leaves the index finger in extended with functional use. He reports he feels stronger. ROM - tip to palm gaps: - index finger 6 cm (no change from a month ago) - middle finger 1 cm (no change from a month ago) - ring and small fingers 0 cm Index finger: MCP 65 deg flexion (improved 15 degrees) PIP 30 deg flexion (decreased 15 degrees) DIP 35 deg flexion (unchanged) Middle finger: MCP 55 deg flexion (unchanged) PIP 95 deg flexion (improved 5 deg) DIP 80 deg flexion (improved 15 deg) (R) truck bracer strength 42 lbs. (L) truck bracer strength 69 lbs. Assessment OT Clinical Summary Patient referred to hand therapy following a table saw injury to the dorsum of his right, dominant hand. He is s/p pinning of the proximal phalanx of the index finger and ED repair in zones III/IV for the index finger and zone V for the middle and ring fingers. He is progressing with functional flexibility/ROM as well as functional use of his right, dominant hand. He is working on gentle, gradual truck bracer strengthening and returning to functional hand use. At this time he is modifying how he uses his hand due to the lack of PIP flexion of the index finger. Continued follow up indicated to progress ROM, use of modalities PRN, and continued scar mobilization as pins are removed to facilitate optimal functional ROM, flexibility, and use of his right, dominant hand. Plan of Care Interventions Therapeutic Exercise,Manual Therapy,Therapeutic Activities,Hot Pack/Cold Pack,Check Out for Orthotic/Prosthetic,Ultrasound,Paraffin OT Services Indicated Yes Treatment Frequency and 1x/week for 4 visits Duration These treatments will address the objective and functional deficits as defined above. The patient will be advanced safely and appropriately in order for the patient to progress towards his/her prior level of function. Additional exercises will be introduced and as well as a comprehensive home exercise program upon discharge, if needed, ?to ensure carryover of functional gains achieved in the clinic. This treatment plan has been reviewed and agreement upon by the patient.
--- NOTE | 2024-11-26 08:47 | OPREHPOC ---
Outpatient Therapy Plan of Care This is a Multidisciplinary Plan of Care that may contain components documented by all disciplines (PT, OT, and ST.) OT Problem 1 OT Problem #1 Knowledge Deficit OT Goal 1 Goal / Goal Update Patient to be independent with instructed materials. ---OT POC UPDATE 10/18/24--- Met, continue as HEP is progressed ---OT POC UPDATE 11/26/24--- Met, continue as HEP is progressed Target Visit 14 OT Problem 2 OT Problem #2 Impaired Range of Motion OT Goal 1 Goal / Goal Update 1. By 6 weeks post op (09/28/24): - patient to be able to make a fist as measured by finger tips being able to touch his palm 2. By 4 weeks post up (09/21/24): - pt to begin short arc wrist motion with fingers extended - pt to begin short arc MCP motion with wrist in neutral ---OT POC UPDATE 10/18/24--- 1. Progressing, but not met, continue 2. Met, D/C goal ---OT POC UPDATE 11/26/24--- 1. Not met, continue to work toward a functional fist Target Visit 14 OT Problem 3 OT Problem #3 Impaired Strength OT Goal 1 Goal / Goal Update ---OT POC UPDATE 11/26/24--- NEW GOAL 1. Patient to increase (R) Assistant Community Director strength to 50 lbs . Target Visit 14
== END 2024-12-09 23:59 | disposition home or self-care (01) ==
LOC: ANHOT 08:00
PROVIDERS: PCP Internal Medicine Geriatric Medicine
DX: S62.610B Displaced fracture of proximal phalanx of right index finger, initial encounter for open fracture (principal)
CPT/HCPCS: 97018; 97110; 97140; 97166; L3933

== ENCOUNTER 2025-01-08 08:00 | Outpatient (RCR) | payer BC, MEDICAID, SELFPAY ==
--- NOTE | 2025-01-08 11:56 | OTOPDC ---
Assessment and note entered by Rick Olivia, OTR/L, CHT OT D/C Notification 01/08/25 Assessment Status Discharge Diagnosis Displaced fracture of proximal phalanx of right index finger Subjective Information HPI: Patient is s/p table saw injury to the dorsum of the right hand. Diagnoses and surgical procedures include -index finger: open proximal phalanx fracture and ED laceration, zone III and IV. S/p ORIF and percutaneous pinning with ED repair. The MP is pinned and order says no movement here. - middle finger: metacarpal head fx and ED laceration zone V. S/p MCP joint capsule repair and ED repair. - ring finger: ED laceration zone V. s/p ED repair 01/08/25: Patient is 20 weeks post op. In the past few weeks he has noticed some progress in his flexibility. Overall he is reporting less pain in the index finger. He continues to compensate during functional tasks. He reports feeling a little sore this morning due to doing a lot of yard work this weekend. He reports he is making progress toward being able to make a fist with the middle, ring, and small fingers, however the index finger continues to be stiff and has limited functional flexion for gripping. He typically leaves the index finger in extended with functional use. ROM - tip to palm gaps: - index finger 6 cm (no change from a month ago) - middle finger 1 cm (no change from a month ago) - ring and small fingers 0 cm Index finger: MCP 65 deg flexion (no change from a month ago) PIP 30 deg flexion (no change from a month ago) DIP 30 deg flexion (decreased 5 degrees) Middle finger: MCP 55 deg flexion (unchanged) PIP 95 deg flexion (unchanged) DIP 80 deg flexion (unchanged) (R) middle school teacher strength 40 lbs. (L) middle school teacher strength 65 lbs. Reported Pain Level Pain Score 0: Self Report Additional Pain Score Comments No pain at rest, just stiff Patient reports after a busy day his hand pain increases to 7/10. Assessment OT Clinical Summary Patient referred to hand therapy following a table saw injury to the dorsum of his right, dominant hand. He is s/p pinning of the proximal phalanx of the index finger and ED repair in zones III/IV for the index finger and zone V for the middle and ring fingers. In the past month his progress has unfortunately reached a plateau. Middle finger MCP joint has a hard end feel at 55-60 degrees of flexion. The index finger progress is limited due to bone loss at P1 and being unable to progress to more aggressive ROM here. He has utilized adaptive techniques for hand use to return to wood working, yard work, housework, etc. Reviewed HEP with the patient and he is independent with all materials. D/C at this time. Plan of Care OT Services Indicated No
== END 2025-01-08 14:18 | disposition home or self-care (01) ==
LOC: ANHOT 08:00
PROVIDERS: PCP Internal Medicine Geriatric Medicine
DX: S62.610B Displaced fracture of proximal phalanx of right index finger, initial encounter for open fracture (principal)
CPT/HCPCS: 97018; 97110; 97140